=== PATIENT | female | born 1990 | race Caucasian/White ===

== ENCOUNTER 2019-03-13 15:24 | Observation (INO) | payer MEDICAID ==
[~2019-03-13] VITALS: Ht 154.9 cm; Wt 78.9 kg
[2019-03-13] MEDS ORDERED: PNV1TABL76 PO (15:28)
[2019-03-13] MEDS: LACTATED RINGERS 1,000 ML IV SCH ×2 (15:42→17:21)
[2019-03-13] MEDS ORDERED: LACTATED RINGERS 1,000 ML IV SCH (17:15)
== END 2019-03-13 19:40 | disposition home or self-care (01) ==
LOC: 8 EST LDRP 15:24
PROVIDERS: ADMIT Obstetrics & Gynecology; ATTEND Obstetrics & Gynecology
DX: O26.893 Other specified pregnancy related conditions, third trimester (principal); R10.9 Unspecified abdominal pain; O62.9 Abnormality of forces of labor, unspecified; Z3A.37 37 weeks gestation of pregnancy
CPT/HCPCS: 76815; 76818; 99281; G0378